=== PATIENT | female | born 1935 | race Caucasian/White ===

== ENCOUNTER → 2021-03-15 | Outpatient (CLI) | payer MEDICARE, OTHER ==
[~2021-03-15] MED LIST: CALCIUM600 MG PO; HYDROCHLOROTHIA25 MG PO; LOVASTATIN10 MG PO; METFORMIN HCL500 M1 PO; PRINIVIL10 MG PO; VITAMIN D5000 UNIT PO
== END ==
LOC: CT 08:24
DX: Q28.2 Arteriovenous malformation of cerebral vessels (principal)
CPT/HCPCS: 36415; 70496; 82565; Q9967

== ENCOUNTER → 2021-09-19 | Outpatient (CLI) | payer MEDICARE, OTHER | LOC: CT 12:16 | DX: Q27.30 Arteriovenous malformation, site unspecified (principal) | CPT/HCPCS: 36415; 70496; 82565; 84520; Q9967 ==

== ENCOUNTER 2021-11-18 12:16 | Emergency (ER) | payer MEDICARE, OTHER ==
[2021-11-18 14:32] LABS: RED BLOOD COUNT 4.41 M/UL (4.00-5.10); WHITE BLOOD COUNT 5.3 K/UL (4.5-11.0)
[2021-11-18 15:02] LABS: BUN/CREATININE RATIO 28 (0-10)
[2021-11-18] MEDS ORDERED: FERROUS SULFAT325 M2 PO (16:07)
== END 2021-11-18 23:00 | disposition home or self-care (01) ==
LOC: ER1 12:16
PROVIDERS: Emergency Medicine
DX: D64.9 Anemia, unspecified (principal); E11.9 Type 2 diabetes mellitus without complications; I10 Essential (primary) hypertension
CPT/HCPCS: 36430; 80053; 82272; 82550; 82553; 82607; 82728; 82746; 83540; 83550; 83874; 84484; 85025; 85045; 85610; 85730; 86850; 86870; 86900; 86901; 86902; 86905; 86920; 86922; 93005; 96374; 99284; J2405; P9016

== ENCOUNTER → 2022-01-09 | Outpatient (CLI) | payer MEDICARE, OTHER ==
[~2022-01-09] MED LIST changes: +FERROUS SULFAT325 M2 PO
== END ==
LOC: CT 01-05 11:00
DX: R63.4 Abnormal weight loss (principal); D64.9 Anemia, unspecified; E61.1 Iron deficiency; E11.9 Type 2 diabetes mellitus without complications; K57.30 Diverticulosis of large intestine without perforation or abscess without bleeding
CPT/HCPCS: 82565; Q9967

== ENCOUNTER → 2022-03-20 | Outpatient (CLI) | payer MEDICARE, OTHER | LOC: LAB 09:56 | DX: Q27.30 Arteriovenous malformation, site unspecified (principal) | CPT/HCPCS: 36415; 82565; 84520 ==